=== PATIENT | female | born 1940 | race Caucasian/White ===

== ENCOUNTER → 2017-04-26 | Outpatient (CLI) | payer OTHER, MEDICARE | LOC: FIMAGING 07:44 | PROVIDERS: ATTEND Family Medicine | DX: Z12.31 Encounter for screening mammogram for malignant neoplasm of breast (principal) | CPT/HCPCS: G0202 ==

== ENCOUNTER → 2017-05-30 | Outpatient (CLI) | payer OTHER, MEDICARE | LOC: FIMAGING 11:14 | PROVIDERS: ATTEND Family Medicine | DX: Z13.820 Encounter for screening for osteoporosis (principal); M85.80 Other specified disorders of bone density and structure, unspecified site; Z78.0 Asymptomatic menopausal state ==

== ENCOUNTER → 2017-12-19 | Outpatient (CLI) | payer OTHER, MEDICARE | LOC: FIMAGING 12:30 | PROVIDERS: ATTEND Family Medicine | DX: M19.041 Primary osteoarthritis, right hand (principal) ==

== ENCOUNTER → 2018-01-15 | Outpatient (CLI) | payer OTHER, MEDICARE | LOC: BMCIMAGING 15:22 | PROVIDERS: ATTEND Internal Medicine Rheumatology | DX: R09.89 Other specified symptoms and signs involving the circulatory and respiratory systems (principal); R91.8 Other nonspecific abnormal finding of lung field; M25.551 Pain in right hip; M16.11 Unilateral primary osteoarthritis, right hip ==

== ENCOUNTER → 2018-01-28 | Outpatient (CLI) | payer OTHER, MEDICARE | LOC: FIMAGING 13:54 | PROVIDERS: ATTEND Internal Medicine Rheumatology | DX: R91.8 Other nonspecific abnormal finding of lung field (principal) ==

== ENCOUNTER → 2018-05-06 | Outpatient (CLI) | payer OTHER, MEDICARE | LOC: FIMAGING 16:37 | PROVIDERS: ATTEND Registered Nurse | DX: N15.9 Renal tubulo-interstitial disease, unspecified (principal) ==

== ENCOUNTER → 2018-07-19 | Outpatient (CLI) | payer OTHER, MEDICARE | LOC: FIMAGING 13:07 | PROVIDERS: ATTEND Family Medicine | DX: Z12.31 Encounter for screening mammogram for malignant neoplasm of breast (principal); Z80.3 Family history of malignant neoplasm of breast ==

== ENCOUNTER → 2018-12-09 | Outpatient (CLI) | payer OTHER, MEDICARE | LOC: BMCIMAGING 12:08 | PROVIDERS: ATTEND Internal Medicine Rheumatology | DX: M25.512 Pain in left shoulder (principal) ==

== ENCOUNTER → 2019-03-01 | Outpatient (CLI) | payer OTHER, MEDICARE | LOC: FIMAGING 10:57 | PROVIDERS: ATTEND Internal Medicine Rheumatology | DX: J84.9 Interstitial pulmonary disease, unspecified (principal); I71.2 Thoracic aortic aneurysm, without rupture ==